=== PATIENT | female | born 1955 | race Caucasian/White ===

== ENCOUNTER 2018-11-01 00:35 | Emergency (ER) | payer MEDICARE, SELFPAY ==
[2018-11-01 00:56] VITALS: BP 123/69; PULSE 56; RESP 18; TEMP 36.5; O2SAT 98; BMI 29.0
--- NOTE | 2018-11-01 01:28 | ED.SKABFB ---
HPI - Skin/Abscess/Foreign Bdy General Chief complaint: Skin/Abscess/Foreign Body Stated complaint: pain itching blisters skin/upper body x7 days Time Seen by Provider: 11/01/18 01:06 Source: patient Mode of arrival: ambulatory Limitations: no limitations History of Present Illness HPI narrative: patient is a 62-year-old female who presents with a rash. It has been ongoing for about 1 week. He has started with blisters around her mouth is it has since spread to her arms and her chest. She is pruritic. She was taking Benadryl however she did feel like it was helping. She went to a walk-in clinic yesterday she was given methylprednisolone, and Zyrtec. She was told to stop taking Benadryl. She is now having increased pruritus. She has no throat swelling or neck pain no difficulty breathing. [place] she said it started before she got here and has progressively gotten worse. She denies any new lotions or soaps no new medication or manufactures. MD complaint: rash Location: face, chest, LUE and RUE Pain Consistency: constant Relieving factors: none Related Data Previous Rx's Medication Instructions Recorded hydroxyzine pamoate [Vistaril] 25 mg PO Q6-8H PRN #30 cap 11/01/18 prednisone 50 mg PO DAILY #3 tab 11/01/18 ranitidine HCl 300 mg PO DAILY #10 cap 11/01/18 Allergies Allergy/AdvReac Type Severity Reaction Status Date / Time celecoxib [From Celebrex] Allergy Verified 11/01/18 01:51 cephalexin [From Keflex] Allergy Verified 11/01/18 01:51 Penicillins Allergy Verified 11/01/18 01:51 petrolatum,white Allergy Verified 11/01/18 01:51 [From Petroleum Jelly] Sulfa (Sulfonamide Allergy Verified 11/01/18 01:51 Antibiotics) Review of Systems Review of Systems GENERAL: Denies chills,fever HEENT: Denies throat pain RESPIRATORY: Denies dyspnea, cough, wheezing CARDIOVASCULAR: Denies chest pain, palpitations GASTROINTESTINAL: Denies nausea, vomiting MUSCULOSKELETAL: Denies extremity pain, injury SKIN: See HPI NEUROLOGIC: Denies weakness, dizziness, headache, numbness 8 point review of systems is negative except for those stated above and HPI PFSH Social History Smoking Status: Former smoker Exam Initial Vital Signs Initial Vital Signs: Vital Signs Temperature 97.7 F 11/01/18 00:56 Pulse Rate 56 L 11/01/18 00:56 Respiratory Rate 18 11/01/18 00:56 Blood Pressure 123/69 11/01/18 00:56 Pulse Oximetry 98 11/01/18 00:56 GENERAL: alert well-appearing female no acute distress HEENT: Head atraumatic,EOMI, pupils CARDIOVASCULAR: Regular rate and rhythm without murmurs, rubs or gallops. RESPIRATORY: Breath sounds equal bilaterally, no wheezes rales or rhonchi. no stridor EXTREMITIES: Normal range of motion, no clubbing or edema. Neurovascularly intact NEUROLOGICAL: Alert and oriented x4. no focal deficits SKIN: hives patching over chest face and upper extremities Course Orders Ordered: Discontinued Medications Hydroxyzine Pamoate (Vistaril) 50 mg PO NOW ONE Stop: 11/01/18 01:30 Last Admin: 11/01/18 01:52 Dose: 50 mg Prednisone (Deltasone) 60 mg PO NOW ONE Stop: 11/01/18 01:30 Last Admin: 11/01/18 01:52 Dose: 60 mg Ranitidine HCl (Zantac) 150 mg PO NOW ONE Stop: 11/01/18 01:30 Last Admin: 11/01/18 01:52 Dose: 150 mg Vital Signs - 8 hr 11/01/18 00:56 11/01/18 01:30 Temperature 97.7 F Pulse Rate 56 L 53 L Respiratory Rate 18 16 Blood Pressure 123/69 Blood Pressure [Left Arm] 119/57 L Pulse Oximetry 98 100 MDM - Skin/Abscess/Foreign Bdy MDM Narrative Medical decision making narrative: NO SIGNS OF ANAPHYLAXIS. WILL CHANGE OF MEDICATION TO SEE IF THAT HELPS. Discharge Plan Departure Patient Disposition: Home Clinical Impression: Allergic reaction Discharge Date/Time: 11/01/18 02:06 Interventions: ED Discharge Assessment Last Done: 11/01/18 02:05 Instructions: VANESSA Briggs for General Allergic Reactions Activity Restrictions/Additional Instructions: *You have been diagnosed with allergic reaction, urticaria *What to do: unclear what you're allergic to you may require allergy testing with her primary care physician *Continue to take medications as directed - STOP TAKING METHYLPREDNISOLONE - THE PREDNISONE 50 MG ONCE A DAY FOR 3 DAYS -VISTARIL 25 MG 3 TIMES A DAY IF NEEDED FOR ITCHING - RANITIDINE 150 MG ONCE A DAY TO HELP WITH ITCHING *Follow up with your primary care provider in 2-3 days *Return to ER if you should have difficulty breathing, worsening rash, throat swelling lip swelling tongue swelling any new, worsening or concerning symptoms Prescriptions: New prednisone 50 mg tablet 50 mg PO DAILY Qty: 3 RF: 0 ranitidine HCl 150 mg capsule 300 mg PO DAILY Qty: 10 RF: 0 hydroxyzine pamoate [Vistaril] 25 mg capsule 25 mg PO Q6-8H PRN (Reason: itching) Qty: 30 RF: 0
[2018-11-01 01:30] VITALS: BP 119/57; PULSE 53; RESP 16; O2SAT 100
[2018-11-01] MEDS: predniSONE 20 MG TABLET 60 MG PO (01:52)
[2018-11-01] MEDS: hydrOXYzine pamoate 25 MG CAPSULE 50 MG PO (01:52)
== END 2018-11-01 02:06 | disposition home or self-care (01) ==
PROVIDERS: Emergency Provider Emergency Medicine
DX: T78.40XA Allergy, unspecified, initial encounter (principal); L29.9 Pruritus, unspecified
CPT/HCPCS: 99282; 99283